=== PATIENT | female | born 1995 | race Caucasian/White ===

== ENCOUNTER 2016-10-29 12:38 | Day surgery (SDC) | payer OTHER ==
[~2016-10-29] VITALS: Ht 160 cm; Wt 72.6 kg
[~2016-10-29 12:38] MED LIST: 0.9% Sodium Chloride 1,000 ML IV SCH; CYPR4TAB PO; OMPR20CCR PO; Sodium Chloride LOK Flush 10 mL Syringe IV PRN; fentaNYL-PF 50 mCg/mL 2 mL Inj IVPUSH PRN
[2016-10-29] MEDS ORDERED: NORE1PAT7 TD (13:34)
[2016-10-29 13:49] VITALS: BP 120/64; PULSE 84; O2SAT 98
[2016-10-29 14:36] VITALS: BP 118/59; PULSE 78; RESP 12; O2SAT 96
[2016-10-29 14:42] VITALS: BP 114/56; PULSE 87; RESP 12; O2SAT 96
[2016-10-29 14:50] VITALS: BP 114/54; PULSE 76; RESP 12; O2SAT 98
--- NOTE | 2016-10-29 20:01 | ENDO ---
[address] [address] ENDOSCOPY PROCEDURE PATIENT: PEARL SANCHEZ : 1995 MR#: [id number] ADMIT: 10/29/2016 JOB ID: [id number] DATE OF SERVICE: 10/29/2016 TYPE OF OPERATION: Esophagogastroduodenoscopy, biopsy. Colonoscopy, biopsy. PREOPERATIVE DIAGNOSIS(ES): Diarrhea, abdominal pain. POSTOPERATIVE DIAGNOSIS: 1. Normal upper endoscopy, status post biopsy. 2. Normal colonoscopy, status post biopsy. ANESTHESIA: Fentanyl 200 mcg, Versed 10 mg IV administered. COMPLICATIONS: None. BLOOD LOSS: Minimal. DESCRIPTION OF PROCEDURE: After risks and benefits explained to the patient, informed consent was obtained. After anesthesia administered, upper endoscope was then inserted in the mouth intubating the esophagus, stomach, second portion of duodenum. Mucosa carefully examined. After procedure was done, the scope withdrawn, procedure terminated. Colonoscope was then inserted from rectum to the terminal ileum and mucosa carefully examined. Prep of the patient was excellent. After the procedure was done, the scope withdrawn, procedure terminated. FINDINGS: Upon inspection of the esophagus, esophagus was normal without masses, ulcers, lesions. Z-line located at 40 cm from incisors. Upon entering the stomach, the stomach was also normal without masses, ulcers, or lesions. Retroflexion was normal. Duodenal bulb, first and second portion normal. Biopsies taken of duodenum, antrum, body of stomach. Upon inspection of the anus, no masses, hemorrhoids, ulcers, or fissures that were seen. Throughout the entire examination, there were no polyps, masses, or lesions. Biopsies taken of terminal ileum and random colon. Retroflexion done. IMPRESSION: Normal upper endoscopy. Normal colonoscopy, status post biopsy. RECOMMENDATION: Await pathology results. Follow up in GI clinic as needed.
--- NOTE | 2016-11-02 16:44 | PATH ---
SURGICAL PATHOLOGY Attending Physician:Julián Red MD CASE STATUS: Signed Out PATIENT NAME: PEARL SANCHEZ PID: [id number] : 1995 DATE COLLECTED:10/29/2016 23:39 SPECIMEN: 1: Stomach, Antrum, Biopsy 2: Gastric, Biopsy 3: Duodenum, Biopsy 4: Ileum, Biopsy 5: Colon, Biopsy CLINICAL HISTORY: 1). ANTRUM BIOPSY 2). GASTRIC BODY 3). DUODENUM 4). TERMINAL ILEUM 5). RANDOM COLON FINAL DIAGNOSIS: 1.GASTRIC ANTRUM, BIOPSY: GASTRIC ANTRAL MUCOSA WITH CHRONIC GASTRITIS. Negative for Helicobacter organisms by immunohistochemistry. Negative for intestinal metaplasia. Negative for dysplasia and malignancy. 2.GASTRIC BODY, BIOPSY: BODY-TYPE MUCOSA WITH NO DIAGNOSTIC ABNORMALITY. Negative for Helicobacter organisms. Negative for intestinal metaplasia. Negative for dysplasia and malignancy. 3.DUODENUM, BIOPSY: SMALL BOWEL MUCOSA WITH NO DIAGNOSTIC ABNORMALITY. Negative for active inflammation, features of sprue, dysplasia, and malignancy. 4.TERMINAL ILEUM, BIOPSY: SMALL BOWEL MUCOSA WITH NO DIAGNOSTIC ABNORMALITY. Negative for active inflammation, dysplasia, and malignancy. 5.RANDOM COLON, BIOPSIES: COLONIC MUCOSA WITH NO DIAGNOSTIC ABNORMALITY. Negative for active, chronic and microscopic colitis. Negative for dysplasia and malignancy. ICD10 R19.7 GROSS DESCRIPTION: The specimen is received in five formalin filled containers labeled with the patient's name. 1). The specimen is labeled "antrum" and consists of a 0.2 x 0.2 x 0.2 CM portion of tissue which is entirely submitted in cassette 1A. 2). The specimen is labeled "gastric body" and consists of 2 portions of tissue which aggregate to zero 3 x 0.3 x 0.2 CM. The specimen is entirely submitted in cassette 2A. 3). The specimen is labeled "duodenum" and consists of 2 portions of tissue which aggregate to 0.3 x 0.3 x 0.2 CM. The specimen is entirely submitted in cassette 3A. 4). The specimen is labeled "terminal ileum" and consists of a 0.2 x 0.2 x 0.2 CM portion of tissue which is entirely submitted in cassette 4A. 5). The specimen is labeled "random colon" and consists of multiple portions of tissue which aggregate to 0.7 x 0.4 x 0.2 CM. The specimen is entirely submitted in cassette 5A. 10/30/2016MI MICRO DESCRIPTION: 1. An immunohistochemical stain was performed to evaluate for Helicobacter organisms and is negative. A control stain showed appropriate reactivity. This test was developed and its performance characteristics determined by [facility]. It has not been cleared or approved by the [place]. Food and Drug Administration. The FDA has determined that such clearance or approval is not necessary. This test is used for clinical purposes. It should not be regarded as investigational or for research. ICD-9 CODES: CPT CODES: 1: 50122, 03956 2: 09708 3: 00198 4: 23460 5: 46996 Electronically Signed Out Kiet Vasquez MD, Ph.D. [facility] [address], [place] [address] Technical component performed at [facility], [address], [place], [address]
== END 2016-10-29 23:59 | disposition home or self-care (01) ==
LOC: END 12:38
PROVIDERS: ATTEND Internal Medicine Gastroenterology
DX: K29.50 Unspecified chronic gastritis without bleeding (principal); R19.7 Diarrhea, unspecified; R10.33 Periumbilical pain; F32.9 Major depressive disorder, single episode, unspecified; J45.909 Unspecified asthma, uncomplicated